=== PATIENT | female | born 1950 | race Caucasian/White ===

== ENCOUNTER → 2018-12-21 13:46 | Outpatient (CLI) | payer MEDICARE, OTHER, SELFPAY ==
--- NOTE | 2018-12-21 | DI.US.S_ITS ---
PROCEDURE: US PELVIC COMPLETE INDICATIONS: POST MENOPAUSAL BLEEDING TECHNIQUE: Real-time scanning was performed of the pelvic organs, with image documentation. Additional endovaginal scanning was necessary due to incomplete visualization of the adnexal and endometrial structures by transabdominal scanning. COMPARISON: [facility], CT, ABDOMEN/PELVIS WITH CONTRAST, 03/14/2016, 10:24. FINDINGS: Transabdominal scanning: Limited scanning through the kidneys shows no hydronephrosis. No pathologic free abdominal or pelvic fluid. Endovaginal scanning: Uterus: Uterus is normal in size at 8.5 x 6 x 4.5 cm. The endometrium measures 15 mm in combined thickness. Incidental note is made of nabothian cysts. Ovaries: The right ovary measures 1.4 x 1.4 x 0.9 cm. The left ovary measures 1.6 x 1.3 x 0.5 cm. The ovaries have a normal sonographic appearance. No adnexal masses are seen. IMPRESSION: The endometrial stripe is thickened in this patient with a given history of postmenopausal bleeding. Differential diagnosis includes endometrial neoplasm and endometrial hyperplasia. Recommend correlation with endometrial histology, as clinically appropriate. Dictated by: Henry Cárdenas M.D. on 12/21/2018 at 17:33 Approved by: Henry Cárdenas M.D. on 12/21/2018 at 17:37
== END ==
PROVIDERS: Family Provider Family Medicine; PCP Family Medicine; Visit Provider Family Medicine
DX: N95.0 Postmenopausal bleeding (principal); R93.89 Abnormal findings on diagnostic imaging of other specified body structures; N88.8 Other specified noninflammatory disorders of cervix uteri
CPT/HCPCS: 76830; 76856

== ENCOUNTER → 2018-12-26 12:38 | Outpatient (CLI) | payer MEDICARE, OTHER, SELFPAY ==
--- NOTE | 2018-12-26 | DI.MG.S_ITS ---
BILATERAL DIGITAL SCREENING MAMMOGRAM 3D/2D WITH CAD: 12/26/2018 CLINICAL: Routine screening. Family history of breast cancer. Comparison is made to exams dated: 10/26/2015 mammogram - [facility], 12/13/2013 mammogram, and 08/09/2010 mammogram - [facility]. The tissue of both breasts is heterogeneously dense. This may lower the sensitivity of mammography. Current study was also evaluated with a Computer Aided Detection (CAD) system. No significant masses, calcifications, or other findings are seen in either breast. There has been no significant interval change. IMPRESSION: NEGATIVE There is no mammographic evidence of malignancy. A 1 year screening mammogram is recommended. This exam was interpreted at Station ID: [id number]. NOTE: For mammograms, a report in lay terms will be sent to the patient. Approximately 15% of breast malignancies will not be visualized mammographically. In the management of a palpable breast mass, a negative mammogram must not discourage biopsy of a clinically suspicious lesion. Electronically Signed By: Masood pang/bobby:12/28/2018 08:34:04 letter sent: Normal Exam ACR BI-RADS Category 1: Negative 3341F
== END ==
PROVIDERS: PCP Family Medicine; Visit Provider Family Medicine
DX: Z12.31 Encounter for screening mammogram for malignant neoplasm of breast (principal); Z80.3 Family history of malignant neoplasm of breast
CPT/HCPCS: 77063; 77067

== ENCOUNTER → 2021-10-01 13:01 | Outpatient (CLI) | payer MEDICARE, OTHER, SELFPAY ==
--- NOTE | 2021-10-01 | DI.MG.S_ITS ---
BILATERAL DIGITAL SCREENING MAMMOGRAM 3D/2D WITH CAD: 10/01/2021 CLINICAL: Routine screening. Family history of breast cancer. Comparison is made to exams dated: 12/26/2018 mammogram, 10/26/2015 mammogram - [facility], and 12/13/2013 mammogram - [facility]. The tissue of both breasts is heterogeneously dense. This may lower the sensitivity of mammography. Current study was also evaluated with a Computer Aided Detection (CAD) system. No significant masses, calcifications, or other findings are seen in either breast. There has been no significant interval change. IMPRESSION: NEGATIVE There is no mammographic evidence of malignancy. A 1 year screening mammogram is recommended. This exam was interpreted at Station ID: [id number]. NOTE: For mammograms, a report in lay terms will be sent to the patient. Approximately 15% of breast malignancies will not be visualized mammographically. In the management of a palpable breast mass, a negative mammogram must not discourage biopsy of a clinically suspicious lesion. Electronically Signed By: Srinivas Avitia M.D., jr/bobby:10/01/2021 14:46:34 letter sent: Normal Exam ACR BI-RADS Category 1: Negative 3341F
== END ==
PROVIDERS: PCP Family Medicine; Referring Provider Family Medicine; Visit Provider Family Medicine
DX: Z12.31 Encounter for screening mammogram for malignant neoplasm of breast (principal); Z80.3 Family history of malignant neoplasm of breast
CPT/HCPCS: 77063; 77067

== ENCOUNTER → 2022-08-13 10:13 | Outpatient (CLI) | payer MEDICARE, OTHER, SELFPAY ==
--- NOTE | 2022-08-13 10:22 | DI.DEXA.S_ITS ---
Bone Density Report Name: ROBYN ADAIR Age: 72 Sex: Female Ethnicity: White Date of : 1950 Indication: postmenopausal; screening for osteoporosis; Referring Provider: DEANGELO JONES Study: Bone densitometry was performed. Exam Date: August 13, 2022 Accession number: [id number] Bone Density: Region BMD T-score Z-score Classification AP Spine(L1-L4) 0.904 -1.3 0.8 Osteopenia Femoral Neck (Left) 0.645 -1.8 0.0 Osteopenia Total Hip (Left) 0.786 -1.3 0.2 Osteopenia Femoral Neck (Right) 0.667 -1.6 0.2 Osteopenia Total Hip (Right) 0.779 -1.3 0.2 Osteopenia Total Hip Mean 0.782 -1.3 0.2 Osteopenia World Health Organization criteria for BMD impression classify patients as: Normal (T-score at or above -1.0), Osteopenia (T-score between -1.0 and -2.5), or Osteoporosis (T-score at or below -2.5). 10-year Fracture Risk(1): Major Osteoporotic Fracture 11% Hip Fracture 2.0% Reported Risk Factors: [place] (), Neck BMD=0.645, BMI=25.8 (1) FRAX(R) Version 3.08. Fracture probability calculated for an untreated patient. Fracture probability may be lower if the patient has received treatment. Previous Exams: -- Region Exam Age BMD T-score BMD Change BMD Change Date g/cm2 vs Baseline vs Previous -- AP Spine (L1-L4) 08/13/2022 72 0.904 -1.3 -0.185 (-17.0%)# -0.185 (-17.0%)# 10/26/2015 65 1.088 0.4 Total Hip(Left) 08/13/2022 72 0.786 -1.3 -0.130 (-14.2%)# -0.130 (-14.2%)# 10/26/2015 65 0.916 -0.2 Total Hip(Right) 08/13/2022 72 0.779 -1.3 -0.110 (-12.3%)# -0.110 (-12.3%)# 10/26/2015 65 0.889 -0.4 -- *Denotes significance at 95% confidence level, LSC for AP Spine = 0.022 g/cm2, LSC for Total Hip = 0.027 g/cm2 # Denotes dissimilar scan types or analysis methods Impression: The patient has low bone mass, based on the Left Femoral Neck T-score. The patient has an estimated ten-year risk of hip fracture of 2% and an estimated ten-year risk of major fracture of 11%, based on the WHO FRAX algorithm. No significant bone loss was observed. Discussion: BONE DENSITY IS LOW AT ONE OR MORE SKELETAL SITES. This patient's lowest T-score is low at one or more skeletal sites. It meets the World Health Organization's (WHO) criteria for ?low bone mass? (T-score between -1.0 and -2.5). The patient's 10-year risk of fracture as calculated by FRAX is less than the threshold where pharmacological therapy is recommended by the National Osteoporosis Foundation (NOF). However, all treatment decisions require clinical judgment and consideration of individual patient factors, including patient preferences, comorbidities, previous drug use, risk factors not captured in the FRAX model (e.g., frailty, falls, vitamin D deficiency, increased bone turnover, interval significant decline in bone density) and possible under or overestimation of fracture risk by FRAX. The patient should follow a healthful lifestyle (good nutrition with adequate calcium and vitamin D, and appropriate weight-bearing exercise). Follow-Up: Consider repeating this study in 2 to 3 years to reassess this patient's status, or sooner if there is some new clinical indication. Reported by: BRIANA GILLESPIE M.D. on 08/13/2022 10:31:00 AM.
== END ==
PROVIDERS: PCP Family Medicine; Referring Provider Family Medicine; Visit Provider Family Medicine
DX: Z78.0 Asymptomatic menopausal state; Z13.820 Encounter for screening for osteoporosis; M85.852 Other specified disorders of bone density and structure, left thigh
CPT/HCPCS: 77080

== ENCOUNTER → 2022-10-07 12:45 | Outpatient (CLI) | payer MEDICARE, OTHER, SELFPAY ==
--- NOTE | 2022-10-07 | DI.MG.S_ITS ---
BILATERAL DIGITAL SCREENING MAMMOGRAM 3D/2D WITH CAD: 10/07/2022 CLINICAL: Routine screening. Family history of breast cancer. Comparison is made to exams dated: 10/01/2021 mammogram, 12/26/2018 mammogram, and 10/26/2015 mammogram - [facility]. Both breasts are heterogeneously dense, which may obscure small masses (category c / 51-75% glandular tissue). Current study was also evaluated with a Computer Aided Detection (CAD) system. No significant masses, calcifications, or other findings are seen in either breast. There has been no significant interval change. IMPRESSION: NEGATIVE There is no mammographic evidence of malignancy. A 1 year screening mammogram is recommended. Based on the Tyrer Cuzick model (a risk assessment model) the patient's lifetime risk is 15.0% and her 10 year risk is 9.7%. According to the ACR, ACS, and NCCN guidelines, an annual breast MRI exam along with mammogram is recommended if the patient's lifetime risk is 20% or greater. This exam was interpreted at Station ID: [id number]. NOTE: For mammograms, a report in lay terms will be sent to the patient. Approximately 15% of breast malignancies will not be visualized mammographically. In the management of a palpable breast mass, a negative mammogram must not discourage biopsy of a clinically suspicious lesion. Electronically Signed By: Barbara salazar/bobby:10/07/2022 14:55:56 letter sent: Normal Exam ACR BI-RADS Category 1: Negative 3341F
== END ==
PROVIDERS: PCP Family Medicine; Referring Provider Family Medicine; Visit Provider Family Medicine
DX: Z12.31 Encounter for screening mammogram for malignant neoplasm of breast (principal); Z80.3 Family history of malignant neoplasm of breast
CPT/HCPCS: 77063; 77067

== ENCOUNTER 2023-07-11 22:06 | Emergency (ER) | payer MEDICARE, OTHER, SELFPAY ==
[2023-07-11] VITALS (9 sets, daily range): BP systolic 174–212; BP diastolic 63–103; PULSE 68–83; RESP 11–44; TEMP 36.6; O2SAT 98–99; BMI 25.0
--- NOTE | 2023-07-11 22:33 | DI.CT.S_ITS ---
PROCEDURE: CT SINUS SCREEN WO CON INDICATIONS: HTN TECHNIQUE: Noncontrast 3.0 mm axial images acquired from the frontal sinuses to the mid-sella, with coronal and sagittal reformats. For radiation dose reduction, the following was used: automated exposure control, adjustment of mA and/or kV according to patient size. COMPARISON: [facility], CT, CT HEAD/BRAIN WO CON, 07/11/2023, 22:46. FINDINGS: Image quality: Good. Beam hardening artifact. Maxillary Sinuses: No bony remodeling or destruction. Sinuses are clear. Ethmoid Air Cells: No bony remodeling or destruction. Mild mucosal thickening. Sphenoid Sinuses: No bony remodeling or destruction. Sinuses are clear. Frontal Sinuses: No bony remodeling or destruction. Sinuses are clear. Ostiomeatal Complexes: Ostiomeatal complexes are patent. No Roberto cells. Miscellaneous: Visualized intra-orbital contents are normal. No nan bullosa or paradoxical turbinate curvature. No nasal septal deviation. IMPRESSION: Mild mucosal thickening at the ethmoid air cells. Dictated by: Gary Roca M.D. on 07/11/2023 at 23:47 Approved by: Gary Roca M.D. on 07/11/2023 at 23:50
--- NOTE | 2023-07-11 22:33 | DI.CT.S_ITS ---
PROCEDURE: CT HEAD/BRAIN WO CON INDICATIONS: HTN TECHNIQUE: Noncontrast 4.5 mm thick angled axial sections acquired from the foramen magnum to the vertex, with coronal and sagittal reformats. For radiation dose reduction, the following was used: automated exposure control, adjustment of mA and/or kV according to patient size. COMPARISON: [facility], CT, CT SINUS SCREEN WO CON, 07/11/2023, 22:46. FINDINGS: Image quality: Diagnostic. CSF spaces: Basal cisterns are patent. No extra-axial fluid collections. Ventricles are normal in size and shape. Brain: No midline shift. No intracranial masses or hemorrhage. No area of hypodensity in a large vascular distribution to suggest acute infarction. Periventricular hypodensity consistent with chronic microvascular ischemic change. Age-related parenchymal loss. Skull and face: Calvarium and visualized facial bones are intact, without suspicious lesions. Sinuses: Trace paranasal sinus mucosal thickening. Mastoids are clear. IMPRESSION: No acute intracranial pathology. Dictated by: Gary Roca M.D. on 07/11/2023 at 23:20 Approved by: Gary Rcoa M.D. on 07/11/2023 at 23:22
[2023-07-11 23:21] LABS: Alanine Aminotransferase 22 IU/L (<35); Albumin 4.8 g/dL (3.5-5.0); Albumin Globulin Ratio 1.5 (1.0-2.8); Alkaline Phosphatase 63 U/L (38-126); Aspartate Aminotransferase 36 IU/L (14-36); BUN Creatinine Ratio 15.6 (6-22); Bilirubin Total 0.8 mg/dL (0.2-1.3); Blood Urea Nitrogen 15 mg/dL (7-17); Calcium 9.6 mg/dL (8.4-10.2); Carbon Dioxide 28 mmol/L (22-32); Chloride 106 mmol/L (98-107); Estimated Glomerular Filt Rate > 60 mL/min (>60); Globulin 3.1 g/dL (1.7-4.1); Glucose 121 mg/dL (80-110); HEMOLYSIS < 15 (0-50); Potassium 3.6 mmol/L (3.4-5.1); Sodium 141 mmol/L (137-145); Total Protein 7.9 g/dL (6.3-8.2)
[2023-07-11 23:22] LABS: Add Manual Diff / Slide Review NO; Basophils Absolute Auto 100 /uL (0-100); Eosinophils Absolute Auto 100 /uL (0-450); Eosinophils Percent Auto 0.9 % (2-4); Hematocrit 40.4 % (36-46); Hemoglobin 13.4 g/dL (12.0-16.0); Lymphocytes Absolute Auto 1300 /uL (1100-4500); Lymphocytes Percent Auto 14.5 % (25-40); Mean Corpuscular HGB Conc 33.2 % (30-36); Mean Corpuscular Hemoglobin 29.3 PG (26-34); Mean Corpuscular Volume 88.1 fL (80-100); Monocytes Absolute Auto 600 /uL (0-900); Monocytes Percent Auto 7.1 % (3-14); Neutrophils Absolute Auto 6900 /uL (1500-7000); Neutrophils Percent Auto 76.5 % (50-75); Platelet Count 204 X10^3/uL (150-400); Red Blood Cell Count 4.58 X10^6/uL (4.0-5.2); Red Cell Distribution Width 13.2 % (11.6-14.8)
--- NOTE | 2023-07-11 23:33 | ED_ITS ---
HPI - General Adult General Chief complaint: Hypertension Stated complaint: Headache, Hypertension Time Seen by Provider: 07/11/23 23:33 Source: patient Mode of arrival: EMS History of Present Illness HPI narrative: 73-year-old female complains of elevated blood pressure and headache, blood pressure 190/80, has been taking new losartan, on repeat blood pressure 170/80, but still having headache sensation, and facial pain. She arrived by ambulance. Denies neck pain, photophobia, visual disturbances. No injury or trauma no activity. She does not take blood thinner medications. No focal weakness to face arm or leg. No numbness to face arm or leg. She denies chest pain, arm pain, jaw pain, diaphoresis, nausea, vomiting. She has been recently prescribed losartan for the last couple of months, it is unclear what dose he takes, but has not missed any of those doses. Related Data Home Medications Medication Instructions Recorded Confirmed levothyroxine 88 mcg capsule 88 mcg PO DAILY 12/11/18 12/11/18 Previous Rx's Medication Instructions Recorded benzonatate 100 mg capsule 100 mg PO BID PRN cough #20 caps 12/11/18 (Teschrista Guerrero) amoxicillin 500 mg-potassium 1 tab PO TID sinusitis 10 days #30 07/12/23 clavulanate 125 mg tablet tabs (Augmentin) Allergies Allergy/AdvReac Type Severity Reaction Status Date / Time azithromycin [From ZITHROMAX] Allergy Unknown Verified 07/11/23 22:24 nitrofurantoin Allergy Unknown Verified 07/11/23 22:24 [From MACRODANTIN] Sulfa (Sulfonamide Allergy Unknown Verified 07/11/23 22:24 Antibiotics) [SULFA (SULFONAMIDE ANTIBIOTICS)] Review of Systems Review of Systems ROS Unobtainable: All systems reviewed & are unremarkable except as noted in HPI and below Patient History Social History Smoking Status: Never smoker Smoking Status: Never smoker alcohol intake frequency: holidays/special occasions only Substance Use Type: does not use Exam Narrative Exam Narrative: GENERAL: Well-developed patient, in mild distress. HEAD: Atraumatic. Normocephalic. EYES: Pupils equal round and reactive. Extraocular motions intact. No scleral icterus. No injection or drainage. ENT: Nose without bleeding, purulent drainage. Throat without erythema, tonsillar hypertrophy or exudate. Airway patent. NECK: Trachea midline. Non tender CARDIOVASCULAR: Regular rate and rhythm without murmurs, gallops, or rubs. RESPIRATORY: Clear to auscultation. Breath sounds equal bilaterally. No wheezes, rales, or rhonchi. GASTROINTESTINAL: Abdomen soft, non-tender, nondistended. EXTREMITIES: No edema or joint tenderness. BACK: Nontender without deformity or crepitance. No flank tenderness. NEURO: AOx3. SKIN: No rash or erythema of visible areas Initial Vital Signs Initial Vital Signs: Vital Signs Pulse Rate 79 07/11/23 22:19 Respiratory Rate 27 H 07/11/23 22:19 Pulse Oximetry 98 07/11/23 22:19 Course Orders Ordered: ED Orders 07/11/23 22:33 CT head/brain wo con Stat CT sinus screen wo con Stat 07/11/23 23:00 Complete Blood Count AUTO DIFF Stat Comprehensive Metabolic Panel Stat Discontinued Medications Amoxicillin/Clavulanate Potassium (Amoxicillin/Clav 875/125 Mg) 1 tab PO NOW ONE Stop: 07/12/23 00:27 Last Admin: 07/12/23 00:37 Dose: 1 tab Documented By: NOEMY Losartan Potassium (Losartan 25 Mg Tablet) 25 mg PO NOW ONE Stop: 07/11/23 23:52 Last Admin: 07/12/23 00:01 Dose: 25 mg Documented By: AB Vital Signs Vital signs: Vital Signs - 8 hr 07/11/23 23:03 07/11/23 23:04 07/11/23 23:04 Temperature Pulse Rate 72 71 Respiratory Rate 17 11 L Blood Pressure 197/93 H Pulse Oximetry 98 99 07/11/23 23:15 07/11/23 23:15 07/11/23 23:30 Temperature Pulse Rate 68 Respiratory Rate 44 H Blood Pressure 192/103 H 194/102 H Pulse Oximetry 98 07/11/23 23:30 07/11/23 23:46 07/11/23 23:46 Temperature Pulse Rate 71 79 Respiratory Rate 30 H 25 H Blood Pressure 212/98 H Pulse Oximetry 98 99 07/12/23 00:00 07/12/23 00:00 07/12/23 00:01 Temperature Pulse Rate 73 67 Respiratory Rate 29 H Blood Pressure 191/92 H 191/92 H Pulse Oximetry 98 07/12/23 00:15 07/12/23 00:15 07/12/23 00:30 Temperature Pulse Rate 67 Respiratory Rate 42 H Blood Pressure 180/86 H 178/93 H Pulse Oximetry 99 07/12/23 00:30 07/12/23 00:45 07/12/23 00:45 Temperature Pulse Rate 73 69 Respiratory Rate 41 H 48 H Blood Pressure 207/91 H Pulse Oximetry 99 99 07/12/23 00:51 Temperature 97.6 F Pulse Rate Respiratory Rate Blood Pressure Pulse Oximetry Medical Decision Making Lab Data Lab results reviewed: Yes I reviewed the patient's lab results. 07/11/23 23:00 07/11/23 23:00 Labs: Lab Results 07/11/23 Range/Units 23:00 WBC 9.0 (4.5-11.0) X10^3/uL RBC 4.58 (4.0-5.2) X10^6/uL Hgb 13.4 (12.0-16.0) g/dL Hct 40.4 (36-46) % MCV 88.1 (80-100) fL MCH 29.3 (26-34) PG MCHC 33.2 (30-36) % RDW 13.2 (11.6-14.8) % Plt Count 204 (150-400) X10^3/uL Neut % (Auto) 76.5 H (50-75) % Lymph % (Auto) 14.5 L (25-40) % Carlton % (Auto) 7.1 (3-14) % Eos % (Auto) 0.9 L (2-4) % Baso % (Auto) 1.0 (0-2) % Neut # (Auto) 6900 (4318-3389) /uL Lymph # (Auto) 1300 (0040-6008) /uL Carlton # (Auto) 600 (0-900) /uL Eos # (Auto) 100 (0-450) /uL Baso # (Auto) 100 (0-100) /uL Sodium 141 (137-145) mmol/L Potassium 3.6 (3.4-5.1) mmol/L Chloride 106 (98-107) mmol/L Carbon Dioxide 28 (22-32) mmol/L BUN 15 (7-17) mg/dL Creatinine 0.96 (0.52-1.04) mg/dL Estimated GFR > 60 (>60) mL/min BUN/Creatinine Ratio 15.6 (6-22) Glucose 121 H (80-110) mg/dL Calcium 9.6 (8.4-10.2) mg/dL Total Bilirubin 0.8 (0.2-1.3) mg/dL AST 36 (14-36) IU/L ALT 22 (<35) IU/L Alkaline Phosphatase 63 (38-126) U/L Total Protein 7.9 (6.3-8.2) g/dL Albumin 4.8 (3.5-5.0) g/dL Globulin 3.1 (1.7-4.1) g/dL Albumin/Globulin Ratio 1.5 (1.0-2.8) Imaging Data CT scan - head: Radiologist's Impression: [address] [address] [address] Scan Report Signed Patient: Dinah Agosto MR#: [id number] : 1950 Acct:[id number] Age/Sex: 73 / F Date of Service: 07/11/23 Loc: ED Accession Number: [id number] Procedure: CT head/brain wo con Ordering Provider: Deejay Huggins MD PROCEDURE: CT HEAD/BRAIN WO CON INDICATIONS: HTN TECHNIQUE: Noncontrast 4.5 mm thick angled axial sections acquired from the foramen magnum to the vertex, with coronal and sagittal reformats. For radiation dose reduction, the following was used: automated exposure control, adjustment of mA and/or kV according to patient size. COMPARISON: [facility], CT, CT SINUS SCREEN WO CON, 07/11/2023, 22:46. FINDINGS: Image quality: Diagnostic. CSF spaces: Basal cisterns are patent. No extra-axial fluid collections. Ventricles are normal in size and shape. Brain: No midline shift. No intracranial masses or hemorrhage. No area of hypodensity in a large vascular distribution to suggest acute infarction. Periventricular hypodensity consistent with chronic microvascular ischemic change. Age-related parenchymal loss. Skull and face: Calvarium and visualized facial bones are intact, without suspicious lesions. Sinuses: Trace paranasal sinus mucosal thickening. Mastoids are clear. IMPRESSION: No acute intracranial pathology. Dictated by: Gary Roca M.D. on 07/11/2023 at 23:20 Approved by: Gary Roca M.D. on 07/11/2023 at 23:[address] [address] [address] Scan Report Signed Patient: Dinah Agosto MR#: [id number] : 1950 Acct:[id number] Age/Sex: 73 / F Date of Service: 07/11/23 Loc: ED Accession Number: [id number] Procedure: CT sinus screen wo con Ordering Provider: Deejay Huggins MD PROCEDURE: CT SINUS SCREEN WO CON INDICATIONS: HTN TECHNIQUE: Noncontrast 3.0 mm axial images acquired from the frontal sinuses to the mid- sella, with coronal and sagittal reformats. For radiation dose reduction, the following was used: automated exposure control, adjustment of mA and/or kV according to patient size. COMPARISON: [facility], CT, CT HEAD/BRAIN WO CON, 07/11/2023, 22:46. FINDINGS: Image quality: Good. Beam hardening artifact. Maxillary Sinuses: No bony remodeling or destruction. Sinuses are clear. Ethmoid Air Cells: No bony remodeling or destruction. Mild mucosal thickening. Sphenoid Sinuses: No bony remodeling or destruction. Sinuses are clear. Frontal Sinuses: No bony remodeling or destruction. Sinuses are clear. Ostiomeatal Complexes: Ostiomeatal complexes are patent. No Roberto cells. Miscellaneous: Visualized intra-orbital contents are normal. No nan bullosa or paradoxical turbinate curvature. No nasal septal deviation. IMPRESSION: Mild mucosal thickening at the ethmoid air cells. Dictated by: Gary Roca M.D. on 07/11/2023 at 23:47 Approved by: Gary Roca M.D. on 07/11/2023 at 23:50 ECG Data Attestation: I personally reviewed and interpreted this ECG as follows: Interpretation: Normal sinus rhythm with rate of 78, no obvious ST segment elevation or depression changes obvious. Somewhat flat T-waves lead 3, seems normal amplitude other inferior contiguous leads. Intervals CA QRS and QTC normal MDM Narrative Medical decision making narrative: Headache and elevated blood pressures, sinus congestion and sinus pain. Arrival by EMS due to blood pressure concern. 190/100 blood pressure noted, nonfocal neuro exam, nontoxic appearing, moves neck well. Afebrile, sirs screen negative. EKG unremarkable. CT head and CT sinus studies requested. Additional Information: CT head noncontrast study negative, see report. CT sinus study shows ethmoid thickening, consider ethmoid sinusitis. P.o. Augmentin dose. P.o. losartan 25 mg. Repeat blood pressure 180/86, blood pressure seemed to be improving. Patient agreeable to course of antibiotics for possible ethmoid sinusitis. She would like to go home, she is calling for a ride. Follow up with regular doctor advised next couple of days to review symptoms. Return precautions discussed. Prescription for Augmentin course sent to her pharmacy Discharge Plan Departure Patient Disposition: Home Clinical Impression: Sinusitis, Hypertension Instructions: DI for Sinusitis, DI for High Blood Pressure Activity Restrictions/Additional Instructions: Elevated blood pressure, improved with extra dose of oral losartan. Continue your current regimen 100 mg a day losartan. Ethmoid sinusitis noted on CT imaging. First dose antibiotics given in the emergency department, further antibiotic prescription course, take as directed. Recheck by your regular provider if not improving the next couple of days. Return to this/nearest emergency department for any change worsening symptoms or any concerns prior Prescriptions: New amoxicillin-pot clavulanate [Augmentin] 500-125 mg tablet 1 tab PO TID 10 Days Qty: 30 0RF No Action levothyroxine 88 mcg capsule 88 mcg PO DAILY benzonatate [Tessalon Perles] 100 mg capsule 100 mg PO BID PRN (Reason: cough) Qty: 20 0RF Referrals: William Gay MD [Primary Care Provider] - Stand Alone Forms: Patient Portal/API
[2023-07-12] VITALS: BP 191/92; PULSE 73; RESP 29; O2SAT 98
[2023-07-12 00:01] VITALS: BP 191/92; PULSE 67
[2023-07-12] MEDS: LOSARTAN 25 MG TABLET PO (00:01)
[2023-07-12 00:15] VITALS: BP 180/86; PULSE 67; RESP 42; O2SAT 99
[2023-07-12 00:30] VITALS: BP 178/93; PULSE 73; RESP 41; O2SAT 99
[2023-07-12] MEDS: AMOXICILLIN/CLAV 875/125 MG 1 TAB PO (00:37)
[2023-07-12 00:45] VITALS: BP 207/91; PULSE 69; RESP 48; O2SAT 99
[2023-07-12 00:51] VITALS: TEMP 36.4
== END 2023-07-12 00:53 | disposition home or self-care (01) ==
PROVIDERS: Emergency Provider Emergency Medicine; PCP Family Medicine
DX: J32.9 Chronic sinusitis, unspecified (principal); I10 Essential (primary) hypertension; R51.9 Headache, unspecified
CPT/HCPCS: 36415; 70450; 70486; 80053; 85025; 99283; 99284

== ENCOUNTER → 2024-03-11 08:13 | Outpatient (CLI) | payer MEDICARE, OTHER, SELFPAY ==
--- NOTE | 2024-03-11 08:19 | DI.MG.S_ITS ---
BILATERAL DIGITAL SCREENING MAMMOGRAM 3D/2D WITH CAD: 03/11/2024 CLINICAL: Routine screening. Family history of breast cancer. Comparison is made to exams dated: 10/07/2022 mammogram, 10/01/2021 mammogram, and 12/26/2018 mammogram - [facility]. The breasts are heterogeneously dense, which may obscure small masses (category c / 51-75% glandular tissue). Current study was also evaluated with a Computer Aided Detection (CAD) system. No significant masses, calcifications, or other findings are seen in either breast. There has been no significant interval change. IMPRESSION: NEGATIVE There is no mammographic evidence of malignancy. A 1 year screening mammogram is recommended. Based on the Tyrer Cuzick model (a risk assessment model) the patient's lifetime risk is 11.4% and her 10 year risk is 8.6%. According to the ACR, ACS, and NCCN guidelines, an annual breast MRI exam along with mammogram is recommended if the patient's lifetime risk is 20% or greater. This exam was interpreted at Station ID: [id number]. NOTE: For mammograms, a report in lay terms will be sent to the patient. Approximately 15% of breast malignancies will not be visualized mammographically. In the management of a palpable breast mass, a negative mammogram must not discourage biopsy of a clinically suspicious lesion. Electronically Signed By: Gray velasquez/bobby:03/11/2024 17:42:37 letter sent: Normal Exam ACR BI-RADS Category 1: Negative
== END ==
LOC: MAMMO 08:18
PROVIDERS: PCP Family Medicine; Referring Provider Family Medicine; Visit Provider Family Medicine
DX: Z12.31 Encounter for screening mammogram for malignant neoplasm of breast (principal); R92.333 Mammographic heterogeneous density, bilateral breasts; Z80.3 Family history of malignant neoplasm of breast
CPT/HCPCS: 77063; 77067